=== PATIENT | male | born 1960 | race Caucasian/White ===

== ENCOUNTER 2025-05-11 12:06 | Outpatient (OUT) | payer MEDICARE, SELFPAY ==
--- NOTE | 2025-05-11 12:22 | ECG_ITS ---
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 Measurements Intervals [place] Rate: 70 P: 58 HI: 169 QRS: 37 QRSD: 109 T: 43 QT: 419 QTc: 454 Interpretive Statements SINUS RHYTHM INDETERMINATE AXIS ATYPICAL ECG No previous ECG available for comparison Electronically Signed On 05-11-2025 17:35:11 EDT by TARA MEJIA M.D.
--- NOTE | 2025-05-11 13:00 | PM.PRESUREVA ---
History of Present Illness History of Present Illness Chief complaint: left ureteral and kidney stone Narrative: Patient presents for presurgical testing. Please see HPI from Dr. Fitch dated May 09, 2025. Review of Systems ROS Narrative Please see ROS from Dr. Fitch dated May 09, 2025. PFSH PFSH Medical History (Updated 05/11/25 @ 12:49 by An Schaeffer NP) Shoulder pain ?M25.519 - Pain in unspecified shoulder (ICD-10) Neck pain ?M54.2 - Cervicalgia (ICD-10) Arthritis ?M19.90 - Unspecified osteoarthritis, unspecified site (ICD-10) Low iron ?E61.1 - Iron deficiency (ICD-10) Anemia ?D64.9 - Anemia, unspecified (ICD-10) Anxiety ?F41.9 - Anxiety disorder, unspecified (ICD-10) OCD (obsessive compulsive disorder) ?F42.9 - Obsessive-compulsive disorder, unspecified (ICD-10) Depression ?F32.A - Depression, unspecified (ICD-10) Snores ?R06.83 - Snoring (ICD-10) Kidney stones ?N20.0 - Calculus of kidney (ICD-10) Hernia ?K46.9 - Unspecified abdominal hernia without obstruction or gangrene (ICD-10) History of blood transfusion ?Z92.89 - Personal history of other medical treatment (ICD-10) GERD (gastroesophageal reflux disease) ?K21.9 - Gastro-esophageal reflux disease without esophagitis (ICD-10) Crohn's disease ?K50.90 - Crohn's disease, unspecified, without complications (ICD-10) Ureteral stone ?N20.1 - Calculus of ureter (ICD-10) Surgical History (Updated 05/11/25 @ 12:49 by An Schaeffer NP) History of appendectomy ?Z90.49 - Acquired absence of other specified parts of digestive tract (ICD-10) History of esophagogastroduodenoscopy (EGD) ?Z98.890 - Other specified postprocedural states (ICD-10) History of hemorrhoidectomy ?Z98.890 - Other specified postprocedural states (ICD-10) History of colonoscopy ?Z98.890 - Other specified postprocedural states (ICD-10) History of bowel resection ?Z90.49 - Acquired absence of other specified parts of digestive tract (ICD-10) S/P cystoscopy with ureteral stent placement ?Z96.0 - Presence of urogenital implants (ICD-10) History of extracorporeal shockwave lithotripsy (ESWL) ?Z98.890 - Other specified postprocedural states (ICD-10) Family History (Updated 05/11/25 @ 12:49 by An Schaeffer NP) Other Family history of colon cancer Family history of diabetes mellitus Family history of heart disease Family history of hypertension Family history of myocardial infarction Family history of pulmonary embolism Family history of stroke Social History (Updated 05/11/25 @ 12:42 by nA Schaeffer NP) Within the past year, how often did you have a drink containing alcohol: never Score interpretation: A score less than 4 is consistent with normal alcohol consumption. Smoking status: Never smoker Non-prescribed substance use: denies use Previous occupational history: [employer] Highest level of school completed/degree received: high school graduate Meds Home Medications and Allergies Home Medications ?Medication ?Instructions ?Recorded ?Confirmed ?Type atorvastatin 20 mg tablet 20 mg PO DAILY 05/11/25 05/11/25 History cyanocobalamin (vitamin B-12) 1,000 mcg PO DAILY 05/11/25 05/11/25 History 1,000 mcg tablet gabapentin 300 mg capsule 300 mg PO Q12H 05/11/25 05/11/25 History omeprazole 20 mg capsule,delayed 20 mg PO DAILY 05/11/25 05/11/25 History release polysaccharide iron complex 180 mg 180 mg PO DAILY 05/11/25 05/11/25 History iron capsule (Pro Fe) tamsulosin 0.4 mg capsule 0.4 mg PO Q24H 05/11/25 05/11/25 History topiramate 100 mg tablet 50 mg PO TID 05/11/25 05/11/25 History venlafaxine 150 mg 150 mg PO DAILY 05/11/25 05/11/25 History capsule,extended release 24 hr venlafaxine 75 mg capsule,extended 75 mg PO DAILY 05/11/25 05/11/25 History release 24 hr Allergies Allergy/AdvReac Type Severity Reaction Status Date / Time No Known Drug Allergies Allergy Verified 05/11/25 12:35 Exam Narrative Exam Narrative: Constitutional: Awake, alert, comfortable, well-appearing, nontoxic, interactive, vital signs as charted Head: Normocephalic, atraumatic Neck: Supple, normal appearance, normal range of motion, no meningeal signs, no lymphadenopathy Respiratory: No respiratory distress, breath sounds clear Cardiovascular: Regular rate and rhythm, strong and regular heart tones Abdomen: Nontender, small reducible umbilical hernia, normal bowel sounds, soft, no CVA tenderness Musculoskeletal: Normal gait, no swelling or edema Skin: No rashes or induration, no lesions, only visible skin inspected Neuro: No neurological deficits, normal sensation Psychiatric: Oriented ?3, normal affect Assessment and Plan Assessment and Plan (1) Ureteral stone: (2) Kidney stones: Plan Left ureteral/kidney ESWL scheduled with Dr. Fitch May 17, 2025.
[2025-05-11 13:39] LABS: Hematocrit 39.7 % (42.0-54.0); Hemoglobin 12.7 g/dL (14.0-18.0); Immature Granulocytes Abs Auto 0.02 10^3/uL (0.00-0.03); Immature Granulocytes Pct Auto 0.4 % (0.0-0.5); Lymphocytes Absolute Auto 1.8 10^3/uL (1.2-3.8); Mean Corpuscular HGB Conc 32.0 g/dL (29.9-35.2); Mean Corpuscular Hemoglobin 26.2 pg (25.9-34.0); Mean Corpuscular Volume 82.0 fL (80.0-94.0); Platelet Count 319 10^3/uL (150-450); Red Blood Count 4.84 10^6/uL (4.70-6.10); White Blood Count 5.5 10^3/uL (4.0-11.0)
[2025-05-11 14:03] LABS: INR 1.11; Partial Thromboplastin Time 25.3 sec (22.3-36.2); Prothrombin Time 11.6 sec (9.0-11.6)
[2025-05-11 14:55] LABS: Anion Gap 12.2; Blood Urea Nitrogen 16.0 mg/dL (7.0-18.0); Calcium 8.3 mg/dL (8.5-10.1); Carbon Dioxide 23.9 mmol/L (21.0-32.0); Chloride 108 mmol/L (98-107); Estimated GFR (African America 59 (>=60 mL/min/1.73m^2); Estimated GFR (Non-African Ame 49 (>=60 mL/min/1.73m^2); Glucose 94 mg/dL (74-106); Potassium 3.1 mmol/L (3.5-5.1); Sodium 141 mmol/L (136-145)
== END 2025-05-11 12:07 | disposition home or self-care (01) ==
PROVIDERS: PCP Student in an Organized Health Care Education/Training Program; Visit Provider Urology
DX: Z01.810 Encounter for preprocedural cardiovascular examination (principal); Z01.812 Encounter for preprocedural laboratory examination; Z01.818 Encounter for other preprocedural examination; N20.1 Calculus of ureter; N20.0 Calculus of kidney
CPT/HCPCS: 36415; 80048; 85025; 85610; 85730; 93005; G0463

== ENCOUNTER 2025-05-17 10:33 | Day surgery (SDC) | payer MEDICARE, SELFPAY ==
[2025-05-11 12:58] VITALS: BP 131/76; PULSE 80; TEMP 36.3; O2SAT 98; BMI 26.4
[2025-05-17] VITALS (13 sets, daily range): BP systolic 152–170; BP diastolic 84–119; PULSE 68–96; TEMP 36.2–36.6; O2SAT 18–100; BMI 26.4
[2025-05-17 10:51] LABS: Potassium 3.8 mmol/L (3.5-5.1)
--- NOTE | 2025-05-17 11:00 | XR_ITS ---
The [address] [address] Patient Name: LAZARUS PIZARRO MRN: [id number] date: 1960 Sex: M Assigned Patient Location: [facility] Current Patient Location: [facility] Accession/Order Number: [id number] Exam Date: 05/17/2025 11:10 Report Date: 05/17/2025 11:44 At the request of: HEVER HERNÁNDEZ MD Procedure: XR abdomen 1V SINGLE VIEW ABDOMEN COMPARISON: None CLINICAL DATA: History of left ureteral stone. Preoperative imaging for lithotripsy. Supine views of the abdomen and pelvis were obtained. There is some air within stomach. There is also mild air and stool within the colon. There are hemostasis clips, suture material and radiopaque densities projecting at the right abdomen inferior to the kidney. There are a couple calcifications in close proximity overlying the lower pole of the left kidney suggesting stones measuring up to 4 mm in size. There is a larger calcification in the paraspinal region at the L3-4 level on the left measuring almost 1 cm in size. This is probably the ureteral stone of concern. There are pelvic phleboliths and suspected prostate calcifications. There are no soft tissue masses. There is slight levoscoliotic curvature and mild degenerative changes at the lumbar spine. XR/XR abdomen 1V IMPRESSION: LEFT NEPHROLITHIASIS AND PROXIMAL LEFT URETERAL STONE. THERE ARE NO PRIOR STUDIES FOR CORRELATION. Impression dictated by: Shannon Barragan M.D. 05/17/2025 11:44 AM Dictation Location: [place] [address] Electronically authenticated by: [id number] Y Date: 05/17/2025 11:44
[2025-05-17] MEDS: CEFAZOLIN SODIUM 2 GM/50 ML D5W PREMIX IV (13:52)
--- NOTE | 2025-05-17 14:45 | PM.URSON ---
Urology Surgery Operative Note Operative Note Procedure Date: 05/17/25 Time Out Performed: yes Pre-op Diagnosis: Left ureteral and left renal calculi Post-op Diagnosis: same as pre-op Procedures performed: 1. The left ureteral ESWL Anesthesia: General-LMA Primary Surgeon: Jasen Fitch Complications: None Estimated blood loss (mL): 0 Findings: A few lower pole left renal calculi and a 9 to 10 mm left L3-4 ureteral calculus Specimens: None Drains: None Indications for Procedures: This gentleman was found to have left renal calculi and a left ureteral calculus incidentally on CT scan for his Crohn's disease. The ureteral calculus is 9 mm while the renal calculi are 3 to 4 mm each. He has been totally without symptom from the stones. He now presents for left ESWL and possible stent placement. He has signed an informed consent after risks were explained. Some of these risks include bleeding, perinephric hematoma, infection and anesthesia to name a few Detailed description of Procedure: The patient was brought to the Operating Room and placed on Siemens electromagnetic lithotripsy treatment table in the supine position. SCDs were placed on their lower extremities and turned on and functioning during the entire case. Timeout was done by all parties in the room. We all agreed upon the patient's identification and the planned procedures for this patient. General Anesthesia was then administered via LMA. Treatment head was then brought to the patient's correct side. While using flourscopy the left ureteral stone was identified and lined up into the crosshairs. We then began applying shocks. We started at a power level 2.0 and increased to a maximum power level of 3.5. Intermittent fluoroscopy revealed that the stone was fairly slow to fragment. It was not until about 700 shocks that we began to see some fragmentation. This continued on as we progressed with applying shocks. We were getting steady fragmentation along the way. We ended up applying 3250 shocks to this ureteral calculus. We had significant fragmentation. 1 could still see some minimal calcification within the region of the stone. The procedure was terminated at this point. We were unable to do lithotripsy on the renal stones. The patient was then transferred to a [facility] bed and wheeled to PACU in stable condition. The plan will be to check a KUB next week and presumedly due to left renal ESWL.
--- NOTE | 2025-05-17 15:07 | PC.NURSE ---
UPON ARRIVAL TO PACU FIRST FEW BLOOD PRESSURES WERE VERY HIGH . PATIENT WAS TENSING AND LIFTING HIS ARM WHILE CUFF WAS INFLATING.
--- NOTE | 2025-05-17 15:43 | PC.NURSE ---
savannah tinged urine with mucus no stones when strained
== END 2025-05-17 15:55 | disposition home or self-care (01) ==
LOC: SURGOUT 10:33
PROVIDERS: PCP Student in an Organized Health Care Education/Training Program; Visit Provider Urology
PROC: (CPT 50590; principal; 2025-05-17 12:20)
DX: N20.2 Calculus of kidney with calculus of ureter (principal); K50.90 Crohn's disease, unspecified, without complications; K21.9 Gastro-esophageal reflux disease without esophagitis; F41.9 Anxiety disorder, unspecified; F32.A Depression, unspecified
CPT/HCPCS: 50590; 36415; 74018; 84132; J0690; J1100; J1885; J2250; J2405; J2704; J3010

== ENCOUNTER 2025-06-14 10:09 | Outpatient (OUT) | payer MEDICARE, SELFPAY ==
--- OUTSIDE RECORDS SUMMARY | 2025-06-14 10:12 | XMS_ITS | Clinical Summary ---
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 Role Phone Unavailable Primary Care Provider Unavailabl e Allergies No known active allergies Medications MedicationSigDispense QuantityRefillsLast FilledStart DateEnd DateStatus atorvastatin (Lipitor) 20 MG tablet TAKE 1 TABLET BY MOUTH IN THE EVENING FOR 90 DAYS.Active FeroSul 325 (65 Fe) MG tablet Take 1 tablet by mouth in the morning.12/13/2022ctive omeprazole (PriLOSEC) [address] capsule take 1 capsule by mouth EVERY MORNING BEFORE BREAKFAST ON AN EMPTY STOMACH 01/15/2023ctive ProFe 391.3 (180 Fe) MG capsule 07/14/2022ctive tamsulosin (Flomax) 0.4 MG 24 hr capsule Take 1 capsule by mouth in the morning.12/06/2022ctive topiramate (Topamax) 100 MG tablet TAKE 1/2 TABLET BY MOUTH 3 TIMES DAILY.Active venlafaxine XR (Effexor XR) 150 MG 24 hr capsule Take 150 mg by mouth in the morning.Active Active Problems No known active problems Family History Medical HistoryRelationNameCommentsColon cancerFatherBreast cancerSisterOvarian cancerNeg HxRelationNameStatusCommentsBrother3 brothersFatherAliveMotherDeceased Sister3 sisters Social History Tobacco UseTypesPacks/DayYears UsedDateSmoking Tobacco: NeverSmokeless Tobacco: NeverAlcohol UseStandard Drinks/WeekCommentsNever0 (1 standard drink = 0.6 oz pure alcohol)Caffeine: soda/pop, coffeeSex and Gender InformationValueDate RecordedSex Assigned at BirthNot on fileLegal XjdHjui1210/14/2022 11:35 PM EDT Gender IdentityNot on fileSexual OrientationNot on fileOccupationIndustryJob Start DateJob End DateRetiredNot on fileNot on fileNot on file Last Filed Vital Signs Vital SignReadingTime TakenCommentsBlood Qhcqmgco229/7204/ 12:00 PM EDT Pulse--Temperature--Respiratory Rate--Oxygen Saturation--Inhaled Oxygen Concentration--Lruaqc51.2 kg (168 lb)12/24/2021 12:00 PM GBWSuvlbi414.1 cm (5' 5 )12/24/2021 12:00 PM EDTBody Mass Index27.9612/24/2021 12:00 PM EDT Plan of Treatment Not on file Insurance
--- OUTSIDE RECORDS SUMMARY | 2025-06-14 10:12 | XMS_ITS | Clinical Summary ---
Author Organization [facility] 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 45 tablet Active venlafaxine (EFFEXOR XR) 150 MG extended release capsule Take 150 mg by mouth daily02/05/2020Active venlafaxine (EFFEXOR XR) 75 MG extended release capsule TAKE 1 CAPSULE BY MOUTH WITH FOOD ONCE DAILY01/19/2022ctive tamsulosin (FLOMAX) 0.4 MG capsule Take 1 capsule by mouth daily 30 capsule 3Active Active Problems ProblemNoted DateDiagnosed DateLocal infection of skin and subcutaneous tissue 08/09/2015 Overview (05/15/2017): Updating Deprecated Diagnoses Bilateral carpal tunnel kmcwemcg21/04/2016Skin cyst03/22/2015Local infection of skin and subcutaneous edskwg7403/22/2015Hypogonadism male03/03/2014 Jtkskcshyhccsionedeg95/20/2013Medication monitoring luycpxxzk61/01/2013 Ywfymzkjuq65/23/2012nxietyHyperlipidemia Immunizations ImmunizationAdministration DatesNext DueInfluenza Virus Uxxrwai7508/05/2015 Family History Medical HistoryRelationNameCommentsCancerFathercolon cancer in remissionHigh Blood PressureMotherRelationNameStatusCommentsFatherAliveMotherAlive Social History Tobacco UseTypesPacks/DayYears UsedDateSmoking Tobacco: NeverSmokeless Tobacco: Never Tobacco Cessation:Counseling Given: Yes Alcohol UseStandard Drinks/WeekCommentsNot Asked0 (1 standard drink = 0.6 oz pure alcohol)Overall Financial Resource Strain (CARDIA)AnswerDate RecordedHow hard is it for you to pay for the very basics like food, housing, medical care, and heating?Not hard at all04/11/2022HQ-2AnswerDate RecordedPHQ-9 Total Score0 04/11/2022Hunger Vital SignAnswerDate RecordedWithin the past 12 months, you worried that your food would run out before you got the money to buymore.Never true04/11/2022Within the past 12 months, the food you bought just didn't last and you didn't have money to get more.Never true04/11/2022RAPARE - TransportationAnswerDate RecordedIn the past 12 months, has lack of transportation kept you from medical appointments or from getting medications?No 04/11/2022In the past 12 months, has lack of transportation kept you from meetings, work, or from getting things needed for daily living?No04/11/2022ex and Gender InformationValueDate RecordedSex Assigned at BirthNot on fileLegal GexZlzm1109/13/2012 3:15 AM ESTGender IdentityNot on fileSexual OrientationNot on file Last Filed Vital Signs Vital SignReadingTime TakenCommentsBlood Pmwfihvo031/7505 11:29 AM EDT Olszg50299 10:19 AM HHTArhlwqunrxn82.9 ??C (98.4 ??F)12/06/2022 10:19 AM EDTRespiratory Hede6601 10:19 AM EDTOxygen Ogdhlubegh437%12/06/2022 10:19 AM EDTInhaled Oxygen Concentration--Atwcgr96.6 kg (171 lb)12/06/2022 10:19 AM ONTXzdbzr760.1 cm (5' 5 )12/06/2022 10:19 AM EDTBody Mass Index28.46 12/06/2022 10:19 AM EDT Plan of Treatment Health MaintenanceDue DateLast DoneCommentsDepression Tlfgepwhqf52/11/1970 Hepatitis C ofpajh6503/12/1976DTaP/Tdap/Td vaccine (1 - Tdap)1977FIT/FOBT: Average risk2003Fecal-DNA (Cologuard): Average risk2003 Sigmoidoscopy/CT wfzhbwsnaiau59/11/2003Pneumococcal 50+ years Vaccine (1 of 1 - PCV)2008Shingles vaccine (2 of 2)Lipids11/07/2020 11/08/2015, 10/21/2012, 09/24/20112487Hfusarvkyhm65, 09/05/2012 Colorectal Cancer Ieqhof7909/05/2022Flu vaccine (#1)5004/12/2020, 06/02/2018, 08/05/2015COVID-19 Vaccine ( season), 02/12/2022, 11/17/2020, Additional history existsRespiratory Syncytial Virus (RSV) or age 60 yrs+ (1 - 1-dose 75+ series)3Prostate Specific Antigen (PSA) Screening or WpsrsdnuskMfnrojomalxv14/08/2016, 2014, 10/21/2012, Additional history existsHepatitis A vaccineAged OutNo longer eligible based on patient's age to complete this topicHepatitis B vaccineAged OutNo longer eligible based on patient's age to complete this topicHib vaccine Aged OutNo longer eligible based on patient's age to complete this topic Meningococcal (ACWY) vaccineAged OutNo longer eligible based on patient's age to complete this topicMeningococcal B vaccineAged OutNo longer eligible based on patient's age to complete this topicPolio vaccineAged OutNo longer eligible based on patient's age to complete this topic Procedures Procedure NamePriorityDate/TimeAssociated DiagnosisCommentsPSA SCREENINGRoutine 11/08/2015 7:03 AM EDT LIPID VTZUPGezcjcl06/08/2016 7:03 AM EDT HM HSRXCGSDANGWmehugu09/04/2013from Last 3 Months or Most Recently Relevant to Health Maintenance Results * Psa screening (11/08/2015 7:03 AM EDT)ComponentValueRef RangeTest Method Analysis TimePerformed AtPathologist SignaturePSA0.980.00 - 3.89 ng/mL 11/08/2015 2:51 PM EDTCHPO LABComment: When the Total PSA is between 3.00 and 10.00 ng/mL, consider requesting a Free PSA to aid in diagnosis. Specimen (Source)Anatomical Location / LateralityCollection Method / Volume Collection TimeReceived Time11/08/2015 7:03 AM EDT11/08/2015 2:19 PM EDT Narrative Authorizing ProviderResult TypeResult StatusNicole E White CIRCULAR SAW OPERATOR - CNPCHEMISTRY ORDERABLESFinal ResultPerforming OrganizationAddressCity/State/ZIP CodePhone Number [facility] * (ABNORMAL) Lipid Panel (11/08/2015 7:03 AM EDT)ComponentValueRef RangeTest MethodAnalysis TimePerformed AtPathologist SignatureCholesterol, Hyays3549 - 199 mg/dL11/08/2015 2:53 PM EDTCHPO LABComment:ATP III Cholesterol classification is Desirable.Ntewsvbozhkmg373(H)0 - 200 mg/dL11/08/2015 2:53 PM EDTCHPO LABComment:ATP III Triglycerides Classification is High.HDL18(L)40 - 59 mg/dL11/08/2015 2:53 PM EDTCHPO LABComment: ATP III HDL Cholestrol Classification is low. Expected Values: Males: >55 = No Risk ?35-55 = Moderate Risk <35 = High Risk Females: >65 = No Risk ?45-65 = Moderate Risk <45 = High Risk NCEP Guidelines: ??Third Report November 2000 >59 = negative risk factor for CHD <40 = major risk factor for CHD LDL Okndveoazk603 - 129 mg/dL11/08/2015 2:53 PM EDTCHPO LABComment:ATP III LDL Classification is Optimal.Specimen (Source)Anatomical Location / Laterality Collection Method / VolumeCollection TimeReceived Time11/08/2015 7:03 AM EDT 11/08/2015 2:19 PM EDT Narrative Authorizing ProviderResult TypeResult StatusNicole E White CIRCULAR SAW OPERATOR - CNPCHEMISTRY ORDERABLESFinal ResultPerforming OrganizationAddressCity/State/ZIP CodePhone Number [facility] * [facility] COLONOSCOPY (09/05/2012) Narrative Authorizing ProviderResult TypeResult StatusHistorical Provider MDHEALTH MAINTENANCEFinal Result from Last 3 Months or Most Recently Relevant to Health Maintenance Insurance Care Teams Team MemberRelationshipSpecialtyStart DateEnd Katherine Lane DO [address] [place] [id number] [facility] - [facility]12/06/22
== END 2025-06-14 10:10 | disposition home or self-care (01) ==
LOC: PST 10:09
PROVIDERS: PCP Student in an Organized Health Care Education/Training Program; Visit Provider Urology
DX: Z01.818 Encounter for other preprocedural examination (principal); N20.0 Calculus of kidney